=== PATIENT | female | born 1975 | race Native Hawaiian/Other Pacific Islander ===

== ENCOUNTER 2022-02-09 16:09 | Emergency (ER) | payer MEDICAID ==
[2022-02-09 16:32] LABS: BASOPHILS # (AUTO) 0.1 10^3/uL (0.0-0.1); BASOPHILS % (AUTO) 0.4 %; EOSINOPHILS # (AUTO) 0.4 10^3/uL (0.0-0.7); EOSINOPHILS % (AUTO) 2.8 %; HCT - HEMATOCRIT 40.1 % (37.0-47.0); HGB - HEMOGLOBIN 12.8 g/dL (12.0-16.0); LYMPHOCYTES % (AUTO) 26.8 %; MEAN CORPUSCULAR HEMOGLOBIN 27.4 pg (27.0-31.0); MEAN CORPUSCULAR HGB CONC 31.9 g/dL (32.0-36.0); MEAN CORPUSCULAR VOLUME 85.7 fL (81.0-99.0); MONOCYTES # (AUTO) 0.8 10^3/uL (0.0-1.0); NEUTROPHILS # (AUTO) 9.6 10^3/uL (1.5-6.6); NEUTROPHILS % (AUTO) 64.5 %; PLT - PLATELET COUNT 238 10^3/uL (130-450); RED BLOOD COUNT 4.68 10^6/uL (4.20-5.40); WHITE BLOOD COUNT 14.9 x10^3/uL (4.8-10.8)
--- NOTE | 2022-02-09 16:44 | XRAY Report ---
PROCEDURE: Chest 1 View X-Ray INDICATIONS: Chest pain TECHNIQUE: One view of the chest was acquired. COMPARISON: None FINDINGS: Surgical changes and devices: None. Lungs and pleura: No pleural effusions or pneumothorax. Lungs are clear. Mediastinum: Mediastinal contours appear normal. Heart size is normal. Bones and chest wall: No suspicious bony lesions. Overlying soft tissues appear unremarkable. IMPRESSION: Unremarkable portable chest. Reviewed by: Emiliano Nuno MD on 02/09/2022 3:43 PM JOSEFA Approved by: Emiliano Nuno MD on 02/09/2022 3:43 PM AKDT Station ID: [id number]
[2022-02-09 16:46] LABS: ALBUMIN 4.2 g/dL (3.2-5.5); ALBUMIN/GLOBULIN RATIO 0.9 (1.0-2.2); BILIRUBIN,TOTAL 0.5 mg/dL (0.2-1.0); CALCIUM 8.9 mg/dL (8.5-10.3); CREATININE 0.8 mg/dL (0.4-1.0); POTASSIUM 3.4 mmol/L (3.5-5.0)
[2022-02-09] MEDS ORDERED: MAG HYDROX/AL HYDROX/SIMETH 30 ML UDC PO STA (17:26)
[2022-02-09 17:27] VITALS: BP 136/71
--- NOTE | 2022-02-09 17:29 | ED Physician Documentation ---
History of Present Illness - Stated complaint Stated Complaint: CHEST PX - Chief complaint Chief Complaint: Cardiac - History obtained from History obtained from: Patient - History of Present Illness Timing: Today Pain level max: 2 Pain level now: 0 - Additonal information Additional information: Patient is a 46-year-old female who presents to the emergency department complaint of chest pain. She states it lasted for 1 to 2 seconds. She states it was sharp and dull in nature. Fully asymptomatic now. Resolved with belching. No fevers. No chills. No history of cardiac disease. Nothing made it better or worse. Has had similar symptoms previously, found to be due to GERD. Review of Systems Constitutional: denies: Fever, Chills Respiratory: denies: Cough GI: denies: Vomiting, Diarrhea Skin: denies: Rash Musculoskeletal: denies: Neck pain, Back pain Neurologic: denies: Headache PD PAST MEDICAL HISTORY - Past Medical History Past Medical History: Yes Psych: Anxiety - Past Surgical History Past Surgical History: No - Present Medications Home Medications: Ambulatory Orders Medication Instructions Recorded Confirmed No Known Home Medications 02/09/22 02/09/22 - Allergies Allergies/Adverse Reactions: Allergies Allergy/AdvReac Type Severity Reaction Status Date / Time amoxicillin Allergy Intermediate nausea and Verified 02/09/22 16:13 rash amoxicillin trihydrate * Allergy Intermediate nausea and Verified 02/09/22 16:13 [From Augmentin] rash cephalexin monohydrate * Allergy Intermediate rash and Verified 02/09/22 16:13 [From Keflex] nausea potassium clavulanate * Allergy Intermediate nausea and Verified 02/09/22 16:13 [From Augmentin] rash - Social History Does the pt smoke?: No Smoking Status: Never smoker Does the pt drink ETOH?: No Does the pt have substance abuse?: No - Immunizations Immunizations are current?: Yes PD ED PE NORMAL - Vitals Vital signs reviewed: Yes - General General: Alert and oriented X 3, No acute distress, Well developed/nourished - HEENT HEENT: PERRL, Moist mucous membranes - Neck Neck: Supple, no meningeal sign - Cardiac Cardiac: RRR, Strong equal pulses - Respiratory Respiratory: No respiratory distress, Clear bilaterally - Abdomen Abdomen: Soft, Non tender, Non distended - Derm Derm: Warm and dry - Extremities Extremities: No edema, No calf tenderness / cord - Neuro Neuro: Alert and oriented X 3 - Psych Psych: Normal mood, Normal affect Results - Vitals Vitals: Vital Signs - 24 hr 02/09/22 02/09/22 02/09/22 16:14 16:22 17:26 Temperature 36.9 C Heart Rate 92 92 87 Respiratory 18 18 16 Rate Blood Pressure 148/68 H 148/68 H 136/71 H O2 Saturation 100 100 100 Oxygen O2 Source Room air - EKG (time done) 1616 Rate: Rate (enter#) (99) Rhythm: NSR [place]: Normal Intervals: Normal [place] QRS: Normal Ischemia: Normal ST segments, Q waves (II, III, aVF) - Labs Labs: Laboratory Tests 02/09/22 02/09/22 02/09/22 16:27 16:27 16:27 WBC 14.9 H RBC 4.68 Hgb 12.8 Hct 40.1 MCV 85.7 MCH 27.4 MCHC 31.9 L RDW 14.0 Plt Count 238 MPV 11.0 H Neut # (Auto) 9.6 H Lymph # (Auto) 4.0 H Hodgeman # (Auto) 0.8 Eos # (Auto) 0.4 Baso # (Auto) 0.1 Absolute Nucleated RBC 0.00 Nucleated RBC % 0.0 Sodium 137 Potassium 3.4 L Chloride 100 L Carbon Dioxide 25 Anion Gap 12.0 BUN 13 Creatinine 0.8 Estimated GFR (MDRD) 77 L Glucose 152 H Calcium 8.9 Total Bilirubin 0.5 AST 18 ALT 16 Alkaline Phosphatase 64 Troponin I High Sens 3.2 Total Protein 9.0 H Albumin 4.2 Globulin 4.8 H Albumin/Globulin Ratio 0.9 L Lipase 60 H - Rads (name of study) Chest x-ray Radiology: Final report received, EMP read contemporaneously, See rad report (No acute abnormality) PD MEDICAL DECISION MAKING - ED course Complexity details: reviewed results, re-evaluated patient, considered differential (No ST elevation FL, no aortic dissection, no PE, no tension pneumothorax, no aortic aneurysm), d/w patient ED course: 46-year-old female with 1 to 2 seconds of chest pain today. No acute findings on EKG, laboratory testing. High sensitive troponin is negative. Offered repeat High-sensitivity troponin, but patient does not wish to stay for this. Given Maalox. We will have her follow-up with her doctor for further care. Patient is well-appearing, nontoxic. Afebrile. Symptoms not consistent with acute coronary syndrome. Patient counseled regarding signs and symptoms for which I believe and urgent re-evaluation would be necessary. Patient with good understanding of and agreement to plan and is comfortable going home at this time This document was made in part using voice recognition software. While efforts are made to proofread this document, sound alike and grammatical errors may occur. Departure - Departure Disposition: 01 Home, Self Care Clinical Impression: Atypical chest pain Condition: Good Instructions: ED Chest Pain Atypical Unkn Cause Follow-Up: your,doctor in 1 week [Other] Comments: Please follow-up with your doctor for further care. Return if you worsen. You can discuss anxiety medication with your doctor as well as medication for any sort of reflux. Your testing today does not show any acute abnormalities other than a mildly elevated white blood cell count. Your doctor can also check a hemoglobin A1c for potential diabetes. Discharge Date/Time: 02/09/22 17:35
== END 2022-02-09 17:35 | disposition home or self-care (01) ==
LOC: ED 16:09
DX: R07.89 Other chest pain (principal)
CPT/HCPCS: 36415; 71045; 80053; 83690; 84484; 85025; 93005; 99283; 99284; A9270

== ENCOUNTER 2022-02-18 23:02 | Emergency (ER) | payer MEDICAID ==
[2022-02-18 23:17] VITALS: BP 163/74
--- OUTSIDE RECORDS SUMMARY | 2022-02-18 23:48 | EXTERNAL MEDICAL SUMMARY RPT | Continuity of Care Document ---
:1975 Author Organization [place] Address [address] [place] [address] Phone Care Team Providers Name Role Phone Aisha Shoemaker Unavailable Unavailable Allergies No information. Encounters No information. Medications No information. Problems Procedures date description facility 20220211 [facility] Results No information. Vital Signs date measurement value source 20220211 weight_standard 240 lb 20220211 weight_metric 108.86 kg 20220211 temperature_standard 98.1 F 20220211 temperature_metric 36.72 C 20220211 respiration_rate 14 /min 20220211 heart_rate 44 /min 20220211 BP_systolic 130 mm[Hg] 20220211 BP_diastolic 88 mm[Hg]
--- NOTE | 2022-02-19 00:50 | ED Physician Documentation ---
History of Present Illness - Stated complaint Stated Complaint: CHILLS/FEEL WEIRD - Chief complaint Chief Complaint: General - History obtained from History obtained from: Patient - History of Present Illness Timing: Enter time (16:00), Today Pain level max: 0 Pain level now: 0 - Additonal information Additional information: patient recently started taking omeprazole, once per day for 2-3 days after todays dose at about 4PM, she developed chills and felt weird. She cannot elaborate on what she means when she says she feels weird except mild generalized headache. Review of Systems Constitutional: reports: Chills. denies: Fever, Myalgias, Fatigue, Sweats Cardiac: reports: Reviewed and negative Respiratory: reports: Reviewed and negative GI: reports: Reviewed and negative Neurologic: reports: Headache (mild generalized). denies: Generalized weakness, Focal weakness, Numbness PD PAST MEDICAL HISTORY - Past Medical History GI: GERD Psych: Anxiety - Past Surgical History Past Surgical History: No - Present Medications Home Medications: Ambulatory Orders Medication Instructions Recorded Confirmed Omeprazole 02/18/22 - Allergies Allergies/Adverse Reactions: Allergies Allergy/AdvReac Type Severity Reaction Status Date / Time amoxicillin Allergy Intermediate nausea and Verified 02/18/22 23:18 rash amoxicillin trihydrate * Allergy Intermediate nausea and Verified 02/18/22 23:18 [From Augmentin] rash cephalexin monohydrate * Allergy Intermediate rash and Verified 02/18/22 23:18 [From Keflex] nausea potassium clavulanate * Allergy Intermediate nausea and Verified 02/18/22 23:18 [From Augmentin] rash - Social History Does the pt smoke?: No Smoking Status: Never smoker Does the pt drink ETOH?: No Does the pt have substance abuse?: No - Immunizations Immunizations are current?: Yes PD ED PE NORMAL - Vitals Vital signs reviewed: Yes - General General: Alert and oriented X 3, No acute distress, Well developed/nourished - Cardiac Cardiac: RRR, No murmur - Respiratory Respiratory: No respiratory distress, Clear bilaterally - Neuro Neuro: Alert and oriented X 3, Normal speech Results - Vitals Vitals: Oxygen O2 Source Room air PD MEDICAL DECISION MAKING - ED course Complexity details: considered differential, d/w patient ED course: Patient is in NAD, vague c/o chills and feeling weird after taking omeprazole. This was not her first dose, although she started taking this medication only 2- 3 days ago. Hard to gauge if this is side effect of the medication, given lack of specific symptoms beyond chills and mild headache. I advised her to stop taking the medication, as there are alternative medications for GERD she can try instead, such as Pepcid. If her symptoms recur, the variable of the omperazole will have been eliminated. Departure - Departure Disposition: 01 Home, Self Care Clinical Impression: Chills Condition: Good Instructions: ED Drug React Adverse Other Comments: As we discussed, it is possible that your symptoms are due to the prilosec. I recommend discontinuing this medication to eliminate it as a variable. You can try pepcid instead , which is a different acid blaze in a different class of medications (and thus unlikely to cause same side effects). Forms: Activity restrictions Discharge Date/Time: 02/19/22 01:24
== END 2022-02-19 01:24 | disposition home or self-care (01) ==
LOC: ED 23:02
DX: R68.83 Chills (without fever) (principal)
CPT/HCPCS: 99281; 99282

== ENCOUNTER 2022-02-25 20:46 | Emergency (ER) | payer MEDICAID ==
--- OUTSIDE RECORDS SUMMARY | 2022-02-25 21:02 | EXTERNAL MEDICAL SUMMARY RPT | Continuity of Care Document ---
:1975 Author Organization [facility] Address [address] [place] [address] Phone Care Team Providers Name Role Phone Bachle Unavailable Unavailable Miscellaneous Unavailable Unavailable Allergies No information. Encounters No information. Medications date description facility 20220211 Mupirocin 0.02 MG/MG Topical Ointment [facility] Problems Procedures date description facility 20220219 [facility] 20220211 [facility] 20220211 [facility] Results No information. Vital Signs date measurement value source 20220211 weight_standard 240 lb 20220211 weight_metric 108.86 kg 20220211 temperature_standard 98.1 F 20220211 temperature_metric 36.72 C 20220211 respiration_rate 14 /min 20220211 heart_rate 44 /min 20220211 BP_systolic 130 mm[Hg] 20220211 BP_diastolic 88 mm[Hg] 20220211 temperature_standard 98.1 F 20220211 temperature_metric 36.72 C 20220211 respiration_rate 14 /min 20220219 weight_standard 107.95 lb 20220219 weight_metric 48.97 kg 20220219 heart_rate 80 /min 20220219 BP_systolic 140 mm[Hg] 20220219 BP_diastolic 90 mm[Hg]
--- NOTE | 2022-02-25 21:33 | ED Physician Documentation ---
History of Present Illness - Stated complaint Stated Complaint: NUMBNESS, DRY MOUTH - Chief complaint Chief Complaint: General - History obtained from History obtained from: Patient - Additonal information Additional information: Patient is a 46-year-old female presenting for evaluation of dry mouth since yesterday as well as all over body numbness that she felt for a few minutes prior to arrival. Patient is recently felt postnasal drainage for the last week and saw a physician at a walk-in clinic yesterday. She was told she might have a sinus infection and recommended to use Mucinex and Flonase. Also had fullness in her ears and had earwax removed bilaterally. She took Mucinex today and felt that made her dry mouth worse. She also reported feeling all over body numbness prior to coming into the emergency department which has since resolved.Patient denies headache, fever, nasal drainage, cough, difficulty breathing, chest pain, abdominal pain, focal weakness. Review of Systems Constitutional: denies: Fever Nose: reports: Other (Postnasal drip) Throat: denies: Sore throat Cardiac: denies: Chest pain / pressure, Palpitations Respiratory: denies: Dyspnea, Cough GI: denies: Abdominal Pain : denies: Dysuria Skin: denies: Rash Musculoskeletal: denies: Back pain Neurologic: denies: Headache PD PAST MEDICAL HISTORY - Past Medical History Past Medical History: Yes Cardiovascular: None Respiratory: None Neuro: None Endocrine/Autoimmune: None GI: GERD COMPLIANCE REPRESENTATIVE: None : None HEENT: None Psych: Anxiety Musculoskeletal: None Derm: None - Past Surgical History Past Surgical History: No - Present Medications Home Medications: Ambulatory Orders Medication Instructions Recorded Confirmed Omeprazole 02/18/22 Guaifenesin/Pseudoephedrne HCl 1 tab PO DAILY 02/25/22 02/25/22 [Mucinex D ER 1,200-120 mg Tab] - Allergies Allergies/Adverse Reactions: Allergies Allergy/AdvReac Type Severity Reaction Status Date / Time amoxicillin Allergy Intermediate nausea and Verified 02/25/22 20:59 rash amoxicillin trihydrate * Allergy Intermediate nausea and Verified 02/25/22 20:59 [From Augmentin] rash cephalexin monohydrate * Allergy Intermediate rash and Verified 02/25/22 20:59 [From Keflex] nausea potassium clavulanate * Allergy Intermediate nausea and Verified 02/25/22 20:59 [From Augmentin] rash - Social History Does the pt smoke?: No Smoking Status: Never smoker Does the pt drink ETOH?: No Does the pt have substance abuse?: No - Immunizations Immunizations are current?: Yes - POLST Patient has POLST: No PD ED PE NORMAL - General General: Alert and oriented X 3, No acute distress, Well developed/nourished - HEENT HEENT: Atraumatic, Ears normal, Moist mucous membranes, Pharynx benign, Other (No tenderness over frontal or maxillary sinuses, no fullness, no erythema) - Neck Neck: Supple, no meningeal sign - Cardiac Cardiac: RRR, No murmur, Strong equal pulses - Respiratory Respiratory: No respiratory distress, Clear bilaterally - Abdomen Abdomen: Normal bowel sounds, Soft, Non tender, Non distended - Extremities Extremities: No edema - Neuro Neuro: Alert and oriented X 3, oil tank car cleaner 2-12 intact, No motor deficit, No sensory deficit, Normal speech - Psych Psych: Normal mood, Normal affect Results - Vitals Vitals: Vital Signs - 24 hr 02/25/22 02/25/22 20:56 21:44 Temperature 36.0 C L 36.9 C Heart Rate 79 69 Respiratory 17 15 Rate Blood Pressure 159/92 H 132/87 H O2 Saturation 99 100 Oxygen O2 Source Room air PD MEDICAL DECISION MAKING - ED course ED course: Patient with postnasal drainage and dry mouth. On exam, has no sinus tenderness, no fever or signs of bacterial infection. She did report having an episode of all over body numbness which has since resolved. Do not think this suggestive of a stroke or TIA as it appeared generalized and not focal in nature. Patient additionally did not have any other symptoms associated with it.Patient does have a number of questionsSuch as with her having had an epidural 4 years ago can still cause back pain,With her the dry mouth could be a sign of diabetes. Patient had labs done last month and I did review these with her again and told her that her glucose at that time did not suggest diabetes. I did recommend that she establish care with a primary care physician given her number of concernsFor chronic conditions. In regards to her postnasal drainage, recommend saline rinse.Patient felt reassured and is comfortable with plans for discharge. She is aware of return precautions. Departure - Departure Disposition: 01 Home, Self Care Clinical Impression: Mouth dryness, Post-nasal drainage Condition: Stable Instructions: ED Sinusitis No Abx Follow-Up: Celine Caal MD [Provider Admit Priv/Credential] - Comments: Risa - You were Evaluated for feelings of postnasal drainage and dry mouth.Postnasal drainage can be caused by an infection which is likely a viral infection. Antibiotics will not help with this. There are medication she can use for postnasal drainage but they may also cause side effects like dry mouth because they will dry out your mucous membranes. Please continue to hydrate yourself with small amounts of water frequently through the day.If you are not having severe symptoms then avoid medications like antihistaminesWhich may make you feel more dry.You can use saline nasal spray To help with any congestion and to loosen any mucus. Please also follow-up with your primary care doctor. As you do not have 1 I have included information for a provider that may be excepting patients. Return to the emergency department with any concerning symptoms such as chest pain, difficulty breathing, severe headache, weakness to 1 side of the body Or any concerns you may have. Discharge Date/Time: 02/25/22 21:45
[2022-02-25 21:49] VITALS: BP 132/87
== END 2022-02-25 21:45 | disposition home or self-care (01) ==
LOC: ED 20:46
DX: R09.82 Postnasal drip (principal); R68.2 Dry mouth, unspecified
CPT/HCPCS: 99281; 99282

== ENCOUNTER 2022-02-28 16:12 | Emergency (ER) | payer MEDICAID ==
--- OUTSIDE RECORDS SUMMARY | 2022-02-28 16:24 | EXTERNAL MEDICAL SUMMARY RPT | Continuity of Care Document ---
:1975 Author Organization [place] Address [address] [place] [address] Phone Care Team Providers Name Role Phone Miscellaneous Unavailable Unavailable Bachle Unavailable Unavailable Allergies No information. Encounters No information. Medications date description facility 20220211 Mupirocin 0.02 MG/MG Topical Ointment [facility] Problems Procedures date description facility 20220219 [facility] 20220211 [facility] 20220211 [facility] Results No information. Vital Signs date measurement [...]
--- NOTE | 2022-02-28 16:41 | ED Physician Documentation ---
PD HPI FOCAL NEURO - Stated complaint Stated Complaint: FACIAL NUMBNESS - Chief complaint Chief Complaint: Neuro - History obtained from History obtained from: Patient - Additional information Additional information: 46-year-old woman presents for the evaluation of incomplete right sided facial numbness going on for the last weeks or so. She is feeling a lot of anxiety with it. She also notices migratory numbness throughout her body which she also thinks is related to anxiety. There is a frontal headache for the last 2 weeks associated with that that she has been treated for sinusitis with antibiotics 4. Recently diagnosed with prediabetes by her primary care physician. No chance of . Review of Systems Constitutional: denies: Fever, Chills Ears: denies: Loss of hearing, Ear pain Nose: reports: Rhinorrhea / runny nose, Congestion Throat: denies: Sore throat Cardiac: denies: Chest pain / pressure, Palpitations Respiratory: denies: Dyspnea PD PAST MEDICAL HISTORY - Past Medical History Cardiovascular: None Respiratory: None Neuro: None Endocrine/Autoimmune: None GI: GERD MANAGER DATA: None : None HEENT: None Psych: Anxiety Musculoskeletal: None Derm: None - Past Surgical History Past Surgical History: No - Present Medications Home Medications: Ambulatory Orders Medication Instructions Recorded Confirmed Omeprazole 02/18/22 Guaifenesin/Pseudoephedrne HCl 1 tab PO DAILY 02/25/22 02/25/22 [Mucinex D ER 1,200-120 mg Tab] Azithromycin 250 mg PO 02/28/22 buPROPion [Wellbutrin Sr] 100 mg PO BID #60 tablet 02/28/22 diazePAM [Valium] 5 - 10 mg PO TID PRN #15 tablet 02/28/22 - Allergies Allergies/Adverse Reactions: Allergies Allergy/AdvReac Type Severity Reaction Status Date / Time amoxicillin Allergy Intermediate nausea and Verified 02/25/22 20:59 rash amoxicillin trihydrate * Allergy Intermediate nausea and Verified 02/25/22 20:59 [From Augmentin] rash cephalexin monohydrate * Allergy Intermediate rash and Verified 02/25/22 20:59 [From Keflex] nausea potassium clavulanate * Allergy Intermediate nausea and Verified 02/25/22 20:59 [From Augmentin] rash - Social History Does the pt smoke?: No Smoking Status: Never smoker Does the pt drink ETOH?: No Does the pt have substance abuse?: No - Immunizations Immunizations are current?: Yes - POLST Patient has POLST: No PD ED PE NORMAL - Vitals Vital signs reviewed: Yes - General General: Alert and oriented X 3, No acute distress - HEENT HEENT: PERRL, EOMI, Ears normal, Moist mucous membranes, Pharynx benign - Neck Neck: Supple, no meningeal sign, No bony TTP - Cardiac Cardiac: RRR, No murmur - Respiratory Respiratory: No respiratory distress, Clear bilaterally - Abdomen Abdomen: Non tender - Back Back: No CVA TTP, No spinal TTP - Derm Derm: Normal color, Warm and dry, No rash - Extremities Extremities: No edema, No calf tenderness / cord - Neuro Neuro: Alert and oriented X 3, Normal speech - Psych Psych: Normal mood, Normal affect NIHSS - Time Time: 16:35 - Level of Consciousness Level of consciousness: (0) Alert, Keenly responsive LOC Questions: (0) Answers both Q's correct LOC Commands: (0) Performs both correctly - Gaze Best Gaze: (0) Normal - Visual Visual: (0) No loss - Facial Palsy Facial Palsy: (0) Normal, symmetrical movement - Motor Arms (both separate) Motor Arm (right): (0) No drift Motor Arm (left): (0) No drift - Motor Legs (both separate) Motor Leg (right): (0) No drift Motor Leg (left): (0) No drift - Limb Ataxia Limb Ataxia: (0) Absent - Sensory Sensory: (0) Normal (Symmetric sensation throughout the face and upper extremities and lower extremities.) - Best Language Best Language: (0) No aphasia - Dysarthria Dysarthria: (0) Normal - Extinction and Inattention (formally neg Extinction and inattention: (0) No abnormality - Total Score/Results Total Score/Result: 0 Results - Vitals Vitals: Vital Signs - 24 hr 02/28/22 02/28/22 16:26 16:28 Temperature 36.5 C 36.5 C Heart Rate 77 80 Respiratory 18 Rate Blood Pressure 153/79 H O2 Saturation 100 100 Oxygen O2 Source Room air - Labs Labs: Laboratory Tests 02/28/22 17:25 POC Whole Bld Glucose 130 H PD MEDICAL DECISION MAKING - ED course ED course: 46-year-old woman presents for evaluation of facial numbness but without any physical exam findings. She fully admits this may be related to anxiety. A CT of the head was done without pertinent positive findings and her blood sugar was 130 which should not cause symptoms. She was relieved. She would like to start some treatment for anxiety. Departure - Departure Disposition: 01 Home, Self Care Clinical Impression: Paresthesias Condition: Good Record reviewed to determine appropriate education?: Yes Instructions: ED Stress React Prescriptions: diazePAM [Valium] 5 - 10 mg PO TID PRN #15 tablet PRN Reason: Spasms buPROPion [Wellbutrin Sr] 100 mg PO BID #60 tablet Comments: I sent your prescription electronically to [facility] in [place]. CAT scan of your head is normal, no masses or evidence of stroke. Also your exam is normal to and this is reassuring. Return for new or worsening symptoms. Follow-up with your primary care physician, next available appointment.
--- NOTE | 2022-02-28 17:15 | CT Report ---
PROCEDURE: HEAD WO INDICATIONS: Right face numb TECHNIQUE: Noncontrast 4.5 mm thick angled axial sections acquired from the foramen magnum to the vertex. For r adiation dose reduction, the following was used: automated exposure control, adjustment of mA and/or kV according to patient size. COMPARISON: None. FINDINGS: Image quality: Excellent. CSF spaces: Basal cisterns are patent. No extra-axial fluid collections. Ventricles are normal in size and shape. Brain: No midline shift. No intracranial masses or hemorrhage. Gastelum-white matter interface is norm al. Skull and face: Calvarium and visualized facial bones are intact, without suspicious lesions. Sinuses: Visualized sinuses and mastoids are clear. IMPRESSION: No acute intracranial disease process. Reviewed by: Lisette Del Real MD, PhD on 02/28/2022 5:13 PM PDT Approved by: Lisette Del Real MD, PhD on 02/28/2022 5:13 PM PDT Station ID: [id number]
[2022-02-28 17:41] VITALS: BP 138/97
== END 2022-02-28 17:41 | disposition home or self-care (01) ==
LOC: ED 16:12
DX: R20.2 Paresthesia of skin (principal)
CPT/HCPCS: 99282; 99284

== ENCOUNTER 2022-03-04 09:01 | Emergency (ER) | payer MEDICAID ==
--- NOTE | 2022-03-04 09:22 | ED Physician Documentation ---
PD HPI CHEST PAIN - Stated complaint Stated Complaint: CHEST PX - Chief complaint Chief Complaint: Cardiac - History obtained from History obtained from: Patient - History of Present Illness Timing - onset: How many hours ago (2), Today Timing - onset during: Rest, Light activity (was just standing in kitchen preparing breakfast when had brief sharp left pectoral pain for few seconds. Occurred again 20-30 minutes later. No dyspnea, lightheadedness, nor URI symptoms with it.) Timing - duration: Seconds Timing - details: Abrupt onset, Now resolved Quality: Aching, Sharp Location: Left chest Radiation: No: Jaw, Neck, Back Improved by: Other (brief pain that went away on its own.) Worsened by: No: Inspiration, Movement, Palpation Associated symptoms: No: Shortness of air, Nausea (some belching mildly), Vomiting, Feeling faint / dizzy Similar symptoms before: No diagnosis (has had chest pain episodes as well as other varied symptoms of face numbness briefly, some numbness in arm/legs at times. Each has lasted minutes to hours. No consistent symptoms for days per se.) Review of Systems Constitutional: denies: Fever, Chills Eyes: denies: Decreased vision, Photophobia Ears: reports: Ear pain ( pressure feeling left ear, with some intermittent positional vertigo with head movement.). 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 : None HEENT: None Psych: Anxiety Musculoskeletal: None Derm: None - Past Surgical History Past Surgical History: No - Present Medications Home Medications: Ambulatory Orders Medication Instructions Recorded Confirmed buPROPion [Wellbutrin Sr] 100 mg PO BID #60 tablet 02/28/22 03/04/22 Cetirizine [ZyrTEC] 10 mg PO DAILY #15 tablet 03/04/22 Meclizine HCl [Motion Sickness] 25 mg PO Q8H PRN #20 tablet 03/04/22 - Allergies Allergies/Adverse Reactions: Allergies Allergy/AdvReac Type Severity Reaction Status Date / Time amoxicillin Allergy Intermediate nausea and Verified 03/04/22 09:04 rash amoxicillin trihydrate * Allergy Intermediate nausea and Verified 03/04/22 09:04 [From Augmentin] rash cephalexin monohydrate * Allergy Intermediate rash and Verified 03/04/22 09:04 [From Keflex] nausea potassium clavulanate * Allergy Intermediate nausea and Verified 03/04/22 09:04 [From Augmentin] rash - Social History Does the pt smoke?: No Smoking Status: Never smoker Does the pt drink ETOH?: No Does the pt have substance abuse?: No - Immunizations Immunizations are current?: Yes - POLST Patient has POLST: No PD ED PE NORMAL - Vitals Vital signs reviewed: Yes - General General: Alert and oriented X 3, No acute distress, Well developed/nourished - HEENT HEENT: PERRL, EOMI (no nystagmus noted right now. ), Pharynx benign. No: Ears normal (right is normal; left TM with bulging and fluid behind but no redness/drainage. Canal is patent. ) - Neck Neck: Supple, no meningeal sign, No adenopathy - Cardiac Cardiac: RRR, No murmur - Respiratory Respiratory: Clear bilaterally, Other (no chestwall tenderness) - Abdomen Abdomen: Soft, Non tender - Derm Derm: Normal color, Warm and dry - Extremities Extremities: Normal ROM s pain, No edema, No calf tenderness / cord - Neuro Neuro: Alert and oriented X 3, No motor deficit, Normal speech Results - Vitals Vitals: Vital Signs - 24 hr 03/04/22 03/04/22 09:04 11:06 Temperature 36.9 C 36.2 C L Heart Rate 74 68 Respiratory 18 13 Rate Blood Pressure 176/98 H 119/71 O2 Saturation 100 100 Oxygen O2 Source Room air - EKG (time done) 09:12 Rate: Rate (enter#) (68) Rhythm: NSR [place]: Normal Intervals: Normal [place] QRS: Normal Ischemia: Normal ST segments, Q waves (III), Other (t wave inversion III). No: ST elevation c/w ischemia, ST depression Compare to prior EKG: Unchanged from prior EKG (02/09/22) - Labs Labs: Laboratory Tests 03/04/22 03/04/22 03/04/22 10:11 10:11 10:11 WBC 8.7 RBC 4.57 Hgb 12.8 Hct 39.4 MCV 86.2 MCH 28.0 MCHC 32.5 RDW 14.2 Plt Count 238 MPV 11.0 H Neut # (Auto) 6.3 Lymph # (Auto) 1.9 [place] # (Auto) 0.4 Eos # (Auto) 0.1 Baso # (Auto) 0.1 Absolute Nucleated RBC 0.00 Nucleated RBC % 0.0 Sodium 137 Potassium 3.6 Chloride 101 Carbon Dioxide 26 Anion Gap 10.0 BUN 8 Creatinine 0.7 Estimated GFR (MDRD) 90 Glucose 123 H Calcium 8.9 Total Bilirubin 0.8 AST 18 ALT 18 Alkaline Phosphatase 54 Troponin I High Sens 3.0 Total Protein 8.7 H Albumin 4.2 Globulin 4.5 H Albumin/Globulin Ratio 0.9 L Lipase 47 - Rads (name of study) chest xray Radiology: Prelim report reviewed (no acute cardiopulmonary abnormality.), See rad report PD MEDICAL DECISION MAKING - ED course Complexity details: reviewed results (ECG, CXR, labs normal. Has not been on Wellbutrin long enough for positive effects yet. ), re-evaluated patient (she is still feeling okay. BP somewhat elevated but improves without direct treatment. Patient is anxious about varied symptoms of face numbness, chest pain, arm numbness at times. Concern about MS. I refer her to her PCP to decide if outpt brain MRI or not. Symptoms may be anxiety; continue Wellbut), considered differential (PERC negative. brief sharp pain. no dyspnea. HR normal on monitor. ECG and CXR normal. Neg troponin. Not really improved with mylanta PO. ), d/w patient Departure - Departure Disposition: 01 Home, Self Care Clinical Impression: Vertigo Chest pain Qualifiers: Chest pain type: precordial pain Qualified Code(s): R07.2 - Precordial pain Serous otitis media Qualifiers: Chronicity: acute Laterality: left Recurrence: non-recurrent Qualified Code(s): H65.02 - Acute serous otitis media, left ear Condition: Stable Record reviewed to determine appropriate education?: Yes Instructions: ED Chest Pain Atypical Unkn Cause Follow-Up: Taylor Michaels PA [Primary Care Provider] - Prescriptions: Meclizine HCl [Motion Sickness] 25 mg PO Q8H PRN #20 tablet PRN Reason: Vertigo Cetirizine [ZyrTEC] 10 mg PO DAILY #15 tablet Comments: Your EKG is without any signs of acute injury and is appearing the same as your EKG from a month ago. Your chest x-ray is also clear. Blood test do not show any signs of heart muscle injury/heart attack. You do have some fluid behind the left eardrum but it does not look infected per se. I would treat this with some cetirizine antihistamine daily for the next 1 to 2 weeks. This would be contributing to the dizziness and some ringing in your ear. You can add meclizine every 8 hours if needed for vertigo/dizziness. Unclear the cause of the pain in your chest. No signs of more serious cause at this time. Follow-up with your primary care regarding ongoing evaluation and treatment. I would continue with the recent prescription of the Wellbutrin as you have not really been on it long enough to have felt any improvement as yet with regard to anxiety etc. Discussed with your primary care if any further testing or evaluation of the numbness episodes. Consideration could be a brain MRI but would need to be arranged outpatient. I transmitted your prescriptions to [facility] pharmacy. Discharge Date/Time: 03/04/22 11:14
--- OUTSIDE RECORDS SUMMARY | 2022-03-04 09:30 | EXTERNAL MEDICAL SUMMARY RPT | Continuity of Care Document ---
:1975 Author Organization [facility] Address [address] [place] [address] Phone Care Team Providers Name Role Phone Bachle Unavailable Unavailable Miscellaneous Unavailable Unavailable Allergies No information. Encounters No information. Medications date description facility [id number] Mupirocin 0.02 MG/MG Topical Ointment [facility] Problems Procedures date description facility [id number] [facility] [id number] [facility] [id number] [facility] Results No information. Vital Signs date [...]
[2022-03-04] MEDS ORDERED: MECLIZINE 12.5 MG TABLET PO STA (09:54)
[2022-03-04] MEDS ORDERED: CETIRIZINE 10 MG TABLET PO STA (09:54)
[2022-03-04] MEDS ORDERED: MAG HYDROX/AL HYDROX/SIMETH 30 ML UDC PO STA (09:55)
--- NOTE | 2022-03-04 10:10 | XRAY Report ---
PROCEDURE: Chest 1 View X-Ray INDICATIONS: Chest Pain this morning TECHNIQUE: One view of the chest was acquired. COMPARISON: February 09, 2022 FINDINGS: SUPPORT DEVICES: None. LUNGS/PLEURA: Reduced lung lungs. No focal consolidation, pleural effusion or space-occupying pneumot horax. MEDIASTINUM: The cardiomediastinal silhouette is within normal limits. BONES/SOFT TISSUES: No acute abnormality. IMPRESSION: 1.No acute cardiopulmonary abnormality. Reviewed by: Mariano Pfeiffer MD on 03/04/2022 10:09 AM PDT Approved by: Mariano Pfeiffer MD on 03/04/2022 10:09 AM PDT Station ID: [id number]
[2022-03-04 10:16] LABS: BASOPHILS # (AUTO) 0.1 10^3/uL (0.0-0.1); BASOPHILS % (AUTO) 0.6 %; EOSINOPHILS # (AUTO) 0.1 10^3/uL (0.0-0.7); EOSINOPHILS % (AUTO) 1.1 %; HCT - HEMATOCRIT 39.4 % (37.0-47.0); HGB - HEMOGLOBIN 12.8 g/dL (12.0-16.0); LYMPHOCYTES # (AUTO) 1.9 10^3/uL (1.5-3.5); LYMPHOCYTES % (AUTO) 21.5 %; MEAN CORPUSCULAR HGB CONC 32.5 g/dL (32.0-36.0); MEAN CORPUSCULAR VOLUME 86.2 fL (81.0-99.0); MONOCYTES # (AUTO) 0.4 10^3/uL (0.0-1.0); MONOCYTES % (AUTO) 4.1 %; NEUTROPHILS # (AUTO) 6.3 10^3/uL (1.5-6.6); NEUTROPHILS % (AUTO) 72.2 %; PLT - PLATELET COUNT 238 10^3/uL (130-450); RED BLOOD COUNT 4.57 10^6/uL (4.20-5.40); RED CELL DISTRIBUTION WIDTH 14.2 % (12.0-15.0); WHITE BLOOD COUNT 8.7 x10^3/uL (4.8-10.8)
[2022-03-04 10:27] LABS: ALBUMIN 4.2 g/dL (3.2-5.5); ALBUMIN/GLOBULIN RATIO 0.9 (1.0-2.2); BILIRUBIN,TOTAL 0.8 mg/dL (0.2-1.0); CALCIUM 8.9 mg/dL (8.5-10.3); CREATININE 0.7 mg/dL (0.4-1.0); POTASSIUM 3.6 mmol/L (3.5-5.0); TOTAL PROTEIN 8.7 g/dL (6.7-8.2)
[2022-03-04 11:08] VITALS: BP 119/71
== END 2022-03-04 11:14 | disposition home or self-care (01) ==
LOC: ED 09:01
DX: H65.02 Acute serous otitis media, left ear (principal); R42 Dizziness and giddiness; R07.2 Precordial pain
CPT/HCPCS: 36415; 71045; 80053; 83690; 84484; 85025; 93005; 99282; 99284; A9270

== ENCOUNTER 2022-03-23 20:28 | Emergency (ER) | payer MEDICAID ==
[2022-03-23 20:35] VITALS: BP 180/86
--- NOTE | 2022-03-23 20:51 | ED Physician Documentation ---
History of Present Illness - Stated complaint Stated Complaint: EAR PX,DIZZY,ANXIETY - Chief complaint Chief Complaint: General - Additonal information Additional information: 46-year-old female presents emergency department for evaluation of feeling dizzy, having congestion and muffled hearing mostly in her right ear. She is also reporting some chest pain and pressure. She does state that she is recently been very anxious. This is her third ER visit this month. Patient states that she followed up with her primary care provider and was told that she had a murmur and was advised to get an outpatient echo. Review of Systems Constitutional: denies: Fever, Chills Eyes: reports: Reviewed and negative Ears: reports: Loss of hearing Nose: reports: Congestion Throat: reports: Reviewed and negative Cardiac: reports: Chest pain / pressure Respiratory: denies: Dyspnea, Cough GI: reports: Reviewed and negative : reports: Reviewed and negative Skin: reports: Reviewed and negative Musculoskeletal: reports: Reviewed and negative Neurologic: reports: Reviewed and negative Psychiatric: reports: Reviewed and negative PD PAST MEDICAL HISTORY - Past Medical History Cardiovascular: None Respiratory: None Neuro: None Endocrine/Autoimmune: None GI: GERD 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 : None HEENT: None Psych: Anxiety Musculoskeletal: None Derm: None - Past Surgical History Past Surgical History: No - Present Medications Home Medications: Ambulatory Orders Medication Instructions Recorded Confirmed buPROPion [Wellbutrin Sr] 100 mg PO BID #60 tablet 02/28/22 03/04/22 Cetirizine [ZyrTEC] 10 mg PO DAILY #15 tablet 03/04/22 Meclizine HCl [Motion Sickness] 25 mg PO Q8H PRN #20 tablet 03/04/22 Cetirizine HCl [Zyrtec] 10 mg PO DAILY #30 tablet 03/23/22 - Allergies Allergies/Adverse Reactions: Allergies Allergy/AdvReac Type Severity Reaction Status Date / Time amoxicillin Allergy Intermediate nausea and Verified 03/23/22 20:31 rash amoxicillin trihydrate * Allergy Intermediate nausea and Verified 03/23/22 20:31 [From Augmentin] rash cephalexin monohydrate * Allergy Intermediate rash and Verified 03/23/22 20:31 [From Keflex] nausea potassium clavulanate * Allergy Intermediate nausea and Verified 03/23/22 20:31 [From Augmentin] rash - Social History Does the pt smoke?: No Smoking Status: Never smoker Does the pt drink ETOH?: No Does the pt have substance abuse?: No - Immunizations Immunizations are current?: Yes - POLST Patient has POLST: No PD ED PE NORMAL - General General: Alert and oriented X 3, No acute distress, Well developed/nourished - HEENT HEENT: Atraumatic, EOMI, Moist mucous membranes. No: Ears normal (Effusion of the right ear without tenderness. 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, No motor deficit Eye Opening: Spontaneous Motor: Obeys Commands Verbal: Oriented GCS Score: 15 - Psych Psych: Normal mood Results - Vitals Vitals: Vital Signs - 24 hr 03/23/22 20:31 Temperature 36.5 C Heart Rate 75 Respiratory 16 Rate Blood Pressure 180/86 H O2 Saturation 99 Oxygen O2 Source Room air - EKG (time done) 2045 Rate: Rate (enter#) (66) Rhythm: NSR [place]: Normal Intervals: Normal [place] QRS: Normal Ischemia: Q waves Compare to prior EKG: Unchanged from prior EKG Computer interpretation: Agree with computer - Labs Labs: Laboratory Tests 03/23/22 03/23/22 03/23/22 20:53 20:53 20:53 WBC 12.3 H RBC 4.49 Hgb 12.5 Hct 39.1 MCV 87.1 MCH 27.8 MCHC 32.0 RDW 13.8 Plt Count 249 MPV 11.2 H Neut # (Auto) 7.9 H Lymph # (Auto) 3.5 [place] # (Auto) 0.6 Eos # (Auto) 0.3 Baso # (Auto) 0.0 Absolute Nucleated RBC 0.00 Nucleated RBC % 0.0 Sodium 138 Potassium 3.7 Chloride 101 Carbon Dioxide 25 Anion Gap 12.0 BUN 12 Creatinine 0.7 Estimated GFR (MDRD) 90 Glucose 132 H Calcium 9.1 Total Bilirubin 0.3 AST 16 ALT 15 Alkaline Phosphatase 53 Troponin I High Sens 3.1 Total Protein 8.6 H Albumin 3.9 Globulin 4.7 H Albumin/Globulin Ratio 0.8 L Lipase 52 H PD MEDICAL DECISION MAKING - ED course Complexity details: reviewed old records, reviewed results, re-evaluated patient, considered differential, d/w patient ED course: 46-year-old female presents emergency department for evaluation of right ear muffled hearing congestion and dizziness. She has had congestion for a few weeks without response to cetirizine. She also had reported some chest pain. She does report being exceedingly anxious. Seen by my colleague about a month ago and started on Wellbutrin. She initially started taking that and felt better but then stopped taking it as she does not want to be addicted to the medication. On evaluation she has no focal or cerebellar deficits. She does have a small right ear effusion. But given lack of pain or fevers my suspicion for bacterial otitis media is rather low. Patient is advised to do Benadryl at nighttime as an anticholinergic as well as saline nasal rinses followed by Flonase and cetirizine daily. Screening EKG is unchanged. She does have Q waves in the inferior leads but troponin is negative. These Q waves are unchanged from previous. Patient has been advised by her primary to have follow-up echo which she is currently scheduled. We discussed that the constellation of her symptoms is likely exacerbated by anxiety. She responds to me that she will begin taking the Wellbutrin again. Otherwise emergent return precautions discussed Departure - Departure Disposition: 01 Home, Self Care Clinical Impression: Acute effusion of left ear, Anxiety Condition: Stable Record reviewed to determine appropriate education?: Yes Prescriptions: Cetirizine HCl [Zyrtec] 10 mg PO DAILY #30 tablet Comments: Risa you are seen today in the emergency department for muffled hearing congestion and dizziness. You do have a small effusion behind your right eardrum. This is most likely due to your congestion and eustachian tube dysfunction. I would like you to use saline nasal rinses in the shower each day. After you get out of the shower use Flonase nasal spray. This will help open your eustachian tube up. Taking a dose of Benadryl 25 mg at night before bed will also work to help dry up the secretions and your congestion causing this effusion. I have represcribed the cetirizine and sent it to the [facility] in [place]. You also have a lot of anxiety about your general health. You had reported some chest pain. Your screening labs today do not show any new or worrisome findings. I do recommend you continue to follow-up closely as recommended by your primary care provider for the outpatient echocardiogram. You did seem to feel improvement when taking the bupropion prescribed by Dr. Sandoval over a month ago. I do recommend you resume taking this. Anxiety can cause a lot of worrisome symptoms for many patients including vague numbness tingling panic and worry. Longer-term evaluation and management of this can be done with your primary doctor. You may benefit from meditation and relaxation exercises.
[2022-03-23 20:59] LABS: BASOPHILS % (AUTO) 0.2 %; EOSINOPHILS # (AUTO) 0.3 10^3/uL (0.0-0.7); EOSINOPHILS % (AUTO) 2.2 %; HCT - HEMATOCRIT 39.1 % (37.0-47.0); HGB - HEMOGLOBIN 12.5 g/dL (12.0-16.0); LYMPHOCYTES # (AUTO) 3.5 10^3/uL (1.5-3.5); LYMPHOCYTES % (AUTO) 28.3 %; MEAN CORPUSCULAR HEMOGLOBIN 27.8 pg (27.0-31.0); MEAN CORPUSCULAR VOLUME 87.1 fL (81.0-99.0); MEAN PLATELET VOLUME 11.2 fL (7.9-10.8); MONOCYTES # (AUTO) 0.6 10^3/uL (0.0-1.0); MONOCYTES % (AUTO) 4.5 %; NEUTROPHILS # (AUTO) 7.9 10^3/uL (1.5-6.6); NEUTROPHILS % (AUTO) 64.2 %; PLT - PLATELET COUNT 249 10^3/uL (130-450); RED BLOOD COUNT 4.49 10^6/uL (4.20-5.40); RED CELL DISTRIBUTION WIDTH 13.8 % (12.0-15.0); WHITE BLOOD COUNT 12.3 x10^3/uL (4.8-10.8)
--- OUTSIDE RECORDS SUMMARY | 2022-03-23 21:04 | EXTERNAL MEDICAL SUMMARY RPT | Continuity of Care Document ---
:1975 Author Organization [facility] Address [address] [place] [address] Phone Care Team Providers Name Role Phone Miscellaneous Unavailable Unavailable Bachle Unavailable Unavailable Allergies No information. Encounters No information. Medications date description facility [id number] Mupirocin 0.02 MG/MG Topical Ointment [facility] Problems Procedures date description facility [id number] [facility] [id number] [facility] [id number] [facility] Results No information. Vital Signs date [...]
[2022-03-23 21:24] LABS: ALBUMIN 3.9 g/dL (3.2-5.5); ALBUMIN/GLOBULIN RATIO 0.8 (1.0-2.2); BILIRUBIN,TOTAL 0.3 mg/dL (0.2-1.0); CALCIUM 9.1 mg/dL (8.5-10.3); CREATININE 0.7 mg/dL (0.4-1.0); POTASSIUM 3.7 mmol/L (3.5-5.0); TOTAL PROTEIN 8.6 g/dL (6.7-8.2)
== END 2022-03-23 22:04 | disposition home or self-care (01) ==
LOC: ED 20:28
DX: H65.192 Other acute nonsuppurative otitis media, left ear (principal); F41.9 Anxiety disorder, unspecified
CPT/HCPCS: 36415; 80053; 83690; 84484; 85025; 93005; 99283

== ENCOUNTER 2022-08-13 18:28 | Emergency (ER) | payer MEDICAID ==
[2022-08-13 20:06] LABS: BASOPHILS % (AUTO) 0.3 %; EOSINOPHILS # (AUTO) 0.3 10^3/uL (0.0-0.7); EOSINOPHILS % (AUTO) 2.2 %; HCT - HEMATOCRIT 37.2 % (37.0-47.0); HGB - HEMOGLOBIN 11.7 g/dL (12.0-16.0); LYMPHOCYTES # (AUTO) 2.4 10^3/uL (1.5-3.5); LYMPHOCYTES % (AUTO) 19.5 %; MEAN CORPUSCULAR HGB CONC 31.5 g/dL (32.0-36.0); MEAN CORPUSCULAR VOLUME 85.9 fL (81.0-99.0); MEAN PLATELET VOLUME 10.8 fL (7.9-10.8); MONOCYTES # (AUTO) 0.7 10^3/uL (0.0-1.0); MONOCYTES % (AUTO) 5.2 %; NEUTROPHILS % (AUTO) 72.5 %; PLT - PLATELET COUNT 229 10^3/uL (130-450); RED BLOOD COUNT 4.33 10^6/uL (4.20-5.40); RED CELL DISTRIBUTION WIDTH 13.9 % (12.0-15.0); WHITE BLOOD COUNT 12.4 x10^3/uL (4.8-10.8)
[2022-08-13 20:13] LABS: CALCIUM 9.1 mg/dL (8.5-10.3); CREATININE 0.7 mg/dL (0.4-1.0); POTASSIUM 3.4 mmol/L (3.5-5.0)
--- NOTE | 2022-08-13 20:20 | ED Physician Documentation ---
History of Present Illness - Stated complaint Stated Complaint: ARM PAIN - Chief complaint Chief Complaint: Ext Problem - Additonal information Additional information: 46-year-old female presents emergency department for evaluation of 2 weeks pain in her left deltoid region. She states that the pain began about 2 weeks after getting her flu shot in the arm. She denies any falls or trauma. She only has pain when she moves the arm and it does radiate into her neck and down her arm. She is obese but denies a history of hypertension or diabetes. She is here mostly because she is concerned that the arm pain could be a sign of myocardial infarction. However she does deny chest pain or shortness of air. No leg swelling. 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 : None HEENT: None Psych: Anxiety Musculoskeletal: None Derm: None - Past Surgical History Past Surgical History: No - Present Medications Home Medications: Ambulatory Orders Medication Instructions Recorded Confirmed buPROPion [Wellbutrin Sr] 100 mg PO BID #60 tablet 02/28/22 03/04/22 Cetirizine [ZyrTEC] 10 mg PO DAILY #15 tablet 03/04/22 Meclizine HCl [Motion Sickness] 25 mg PO Q8H PRN #20 tablet 03/04/22 Cetirizine HCl [Zyrtec] 10 mg PO DAILY #30 tablet 03/23/22 - Allergies Allergies/Adverse Reactions: Allergies Allergy/AdvReac Type Severity Reaction Status Date / Time amoxicillin Allergy Intermediate nausea and Verified 08/13/22 18:46 rash amoxicillin trihydrate * Allergy Intermediate nausea and Verified 08/13/22 18:46 [From Augmentin] rash cephalexin monohydrate * Allergy Intermediate rash and Verified 08/13/22 18:46 [From Keflex] nausea potassium clavulanate * Allergy Intermediate nausea and Verified 08/13/22 18:46 [From Augmentin] rash - Social History Does the pt smoke?: No Smoking Status: Never smoker Does the pt drink ETOH?: No Does the pt have substance abuse?: No - Immunizations Immunizations are current?: Yes - POLST Patient has POLST: No PD ED PE NORMAL - General General: Alert and oriented X 3, No acute distress, Well developed/nourished - HEENT HEENT: Atraumatic, Moist mucous membranes - Neck Neck: Supple, no meningeal sign, No adenopathy - Cardiac Cardiac: RRR, No murmur - Respiratory Respiratory: No respiratory distress, Clear bilaterally - Abdomen Abdomen: Normal bowel sounds, Soft - Derm Derm: Normal color, Warm and dry, No rash - Extremities Extremities: No deformity, No tenderness to palpate. No: Normal ROM s pain (Pain with movement of the left shoulder at the deltoid. Negative Jurgenson's. 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 No: Prolonged QT QRS: Low voltage Ischemia: Q waves (Inferior leads) Compare to prior EKG: Old EKG unavailable Computer interpretation: Agree with computer - Labs Labs: Laboratory Tests 08/13/22 08/13/22 08/13/22 19:51 19:54 19:54 WBC 12.4 H RBC 4.33 Hgb 11.7 L Hct 37.2 MCV 85.9 MCH 27.0 MCHC 31.5 L RDW 13.9 Plt Count 229 MPV 10.8 Neut # (Auto) 9.0 H Lymph # (Auto) 2.4 [place] # (Auto) 0.7 Eos # (Auto) 0.3 Baso # (Auto) 0.0 Absolute Nucleated RBC 0.00 Nucleated RBC % 0.0 Sodium 138 Potassium 3.4 L Chloride 105 Carbon Dioxide 26 Anion Gap 7.0 BUN 12 Creatinine 0.7 Estimated GFR (MDRD) 90 Glucose 111 H Calcium 9.1 Troponin I High Sens 3.3 - Rads (name of study) cxr Radiology: Final report received (No acute pulmonary process) PD MEDICAL DECISION MAKING - ED course Complexity details: reviewed results, re-evaluated patient, considered differential, d/w patient ED course: 46-year-old female presents emergency department for evaluation of 2 weeks left shoulder pain at the deltoid region. Pain only present when she moves her arm. However she is obese and has a family history of cardiac disorders therefore she comes to the ER to make sure her heart is okay. The exam of the arm is rather benign and it does have reproducible pain with movement. We did do an a an EKG for the patient who was free of chest pain. We do see sinus rhythm that is nonischemic today but there are some Q waves in the inferior leads. CBC electrolytes and troponin were unremarkable. I discussed the abnormal EKG finding with the patient at the bedside. She reports that her primary care provider had referred her for an echocardiogram quite some time ago though she got busy and never followed up with that. I discussed that she would benefit from continuation with a referral for echocardiogram and should also be referred for evaluation of a stress Test given the Q waves in the inferior leads. No findings today to suggest active myocardial infarction or NSTEMI. Patient is discharged home in stable condition. Departure - Departure Disposition: 01 Home, Self Care Clinical Impression: Pain of left deltoid, Abnormal EKG Condition: Stable Record reviewed to determine appropriate education?: Yes Follow-Up: Taylor Michaels PA [Provider Admit Priv/Credential] - Comments: Risa came to the emergency department today because her about 2 weeks you have been having pain in your left deltoid area on your shoulder. I suspect you have mild muscle strain or shoulder strain but I do not think it is more than that. However you were concerned because you have a strong family history of coronary artery disease and were concerned that the pain in the arm could be related to that. Your EKG today does not show signs of an active heart attack however it was abnormal and that you have" Q waves in the inferior leads" this can be a sign of heart disease and it is important that you follow-up with your primary care provider. In addition to obtaining the echo that she has recommended you would benefit from referral for cardiac stress test. If at any point you find that your symptoms worsen, you develop chest pain or shortness of air you should return immediately to the ER I encouraged moderate weight loss a heart healthy diet and regular exercise
--- NOTE | 2022-08-13 20:40 | XRAY Report ---
PROCEDURE: Chest 1 View X-Ray INDICATIONS: chest pain TECHNIQUE: One view of the chest was acquired. COMPARISON: Chest x-ray 03/04/2022 FINDINGS: Surgical changes and devices: None. Lungs and pleura: No pleural effusions or pneumothorax. Lungs are clear. Mediastinum: Mediastinal contours appear normal. Heart size is mildly prominent. Bones and chest wall: No suspicious bony lesions. Overlying soft tissues appear unremarkable. IMPRESSION: No acute pulmonary process. Reviewed by: Janell Persaud MD on 08/13/2022 8:39 PM PDT Approved by: Janell Persaud MD on 08/13/2022 8:39 PM PDT Station ID: [id number]
[2022-08-13 20:54] VITALS: BP 138/80
== END 2022-08-13 20:56 | disposition home or self-care (01) ==
LOC: ED 18:28
DX: M79.18 Myalgia, other site (principal); R94.31 Abnormal electrocardiogram [ECG] [EKG]; Z82.49 Family history of ischemic heart disease and other diseases of the circulatory system
CPT/HCPCS: 36415; 80048; 84484; 85025; 93005; 99284

== ENCOUNTER 2022-08-18 10:17 | Outpatient (CLI) | payer MEDICAID ==
[2022-08-18 12:54] LABS: ALBUMIN 4.4 g/dL (3.2-5.5); ALBUMIN/GLOBULIN RATIO 0.9 (1.0-2.2); ALKALINE PHOSPHATASE 55 IU/L (42-121); ALT ALANINE AMINOTRANSFERASE 18 IU/L (10-60); AST ASPARTATE AMINOTRANSFERASE 19 IU/L (10-42); BILIRUBIN,TOTAL 0.8 mg/dL (0.2-1.0); BUN - BLOOD UREA NITROGEN 14 mg/dL (6-20); CALCIUM 9.6 mg/dL (8.5-10.3); CARBON DIOXIDE - CO2 24 mmol/L (21-32); CHLORIDE 103 mmol/L (101-111); CHOL/HDL RATIO 4.3 (<4.4); CHOLESTEROL 210 mg/dL; CREATININE 0.7 mg/dL (0.4-1.0); GFR - MDRD 90 (>89); GLUCOSE 119 mg/dL (70-100); HDL CHOLESTEROL 49 mg/dL; LDL CHOLESTEROL,CALCULATED 143 mg/dL; LDL/HDL RATIO 2.9 (<4.4); POTASSIUM 3.8 mmol/L (3.5-5.0); SODIUM 139 mmol/L (135-145); TOTAL PROTEIN 9.1 g/dL (6.7-8.2); TRIGLYCERIDES 88 mg/dL; VLDL CHOLESTEROL 18 mg/dL
[2022-08-18 13:16] LABS: THYROID STIMULATING HORMONE 1.43 uIU/mL (0.34-5.60)
[2022-08-18 13:22] LABS: BASOPHILS % (AUTO) 0.4 %; EOSINOPHILS # (AUTO) 0.1 10^3/uL (0.0-0.7); EOSINOPHILS % (AUTO) 0.7 %; HCT - HEMATOCRIT 40.6 % (37.0-47.0); HGB - HEMOGLOBIN 12.8 g/dL (12.0-16.0); LYMPHOCYTES # (AUTO) 2.7 10^3/uL (1.5-3.5); LYMPHOCYTES % (AUTO) 25.2 %; MEAN CORPUSCULAR HGB CONC 31.5 g/dL (32.0-36.0); MEAN CORPUSCULAR VOLUME 85.7 fL (81.0-99.0); MEAN PLATELET VOLUME 11.4 fL (7.9-10.8); MONOCYTES # (AUTO) 0.6 10^3/uL (0.0-1.0); MONOCYTES % (AUTO) 5.3 %; NEUTROPHILS # (AUTO) 7.2 10^3/uL (1.5-6.6); NEUTROPHILS % (AUTO) 67.8 %; PLT - PLATELET COUNT 257 10^3/uL (130-450); RED BLOOD COUNT 4.74 10^6/uL (4.20-5.40); RED CELL DISTRIBUTION WIDTH 14.2 % (12.0-15.0); WHITE BLOOD COUNT 10.7 x10^3/uL (4.8-10.8)
[2022-08-18 13:31] LABS: ESTIMATED AVERAGE GLUCOSE 120 mg/dL (70-100); HEMOGLOBIN A1c% 5.8 % (4.27-6.07)
[2022-08-18 13:44] LABS: FOLLICLE STIMULATING HORMONE 14.2 mIU/mL
== END 2022-08-18 10:18 | disposition home or self-care (01) ==
LOC: LAB.N 10:17
PROVIDERS: ATTEND Physician Assistant
DX: R73.01 Impaired fasting glucose (principal); E78.5 Hyperlipidemia, unspecified; N95.1 Menopausal and female climacteric states; R23.2 Flushing; R73.03 Prediabetes
CPT/HCPCS: 36415; 80053; 80061; 83001; 83036; 83721; 84443; 85025

== ENCOUNTER 2022-08-27 07:40 | Outpatient (CLI) | payer MEDICAID | END 2022-08-27 07:41 | disposition home or self-care (01) | LOC: DI 07:40 | PROVIDERS: ATTEND Physician Assistant | DX: R01.1 Cardiac murmur, unspecified (principal) | CPT/HCPCS: 93306 ==

== ENCOUNTER 2023-04-23 09:30 | Outpatient (CLI) | payer MEDICAID ==
[2023-04-23 12:04] LABS: ESTIMATED AVERAGE GLUCOSE 137 mg/dL (70-100); HEMOGLOBIN A1c% 6.4 % (4.27-6.07)
[2023-04-23 12:25] LABS: BUN - BLOOD UREA NITROGEN 11 mg/dL (6-20); CALCIUM 8.6 mg/dL (8.5-10.3); CARBON DIOXIDE - CO2 28 mmol/L (21-32); CHLORIDE 106 mmol/L (101-111); CHOL/HDL RATIO 3.6 (<4.4); CHOLESTEROL 174 mg/dL; CREATININE 0.7 mg/dL (0.4-1.0); GFR - MDRD 89 (>89); GLUCOSE 114 mg/dL (70-100); HDL CHOLESTEROL 48 mg/dL; LDL CHOLESTEROL,CALCULATED 113 mg/dL; LDL/HDL RATIO 2.4 (<4.4); POTASSIUM 3.7 mmol/L (3.5-5.0); SODIUM 140 mmol/L (135-145); TRIGLYCERIDES 67 mg/dL; VLDL CHOLESTEROL 13 mg/dL
== END 2023-04-23 09:31 | disposition home or self-care (01) ==
LOC: LAB.N 09:30
PROVIDERS: ATTEND Physician Assistant
DX: E78.5 Hyperlipidemia, unspecified (principal); R73.03 Prediabetes
CPT/HCPCS: 36415; 80048; 80061; 83036; 83721

== ENCOUNTER 2023-11-19 07:52 | Outpatient (CLI) | payer MEDICAID ==
[2023-11-19 12:08] LABS: ALBUMIN 3.7 g/dL (3.2-5.5); ALKALINE PHOSPHATASE 46 IU/L (42-121); ALT ALANINE AMINOTRANSFERASE 15 IU/L (10-60); AST ASPARTATE AMINOTRANSFERASE 14 IU/L (10-42); BILIRUBIN,TOTAL 0.4 mg/dL (0.2-1.0); BUN - BLOOD UREA NITROGEN 13 mg/dL (6-20); CALCIUM 8.7 mg/dL (8.5-10.3); CARBON DIOXIDE - CO2 28 mmol/L (21-32); CHLORIDE 105 mmol/L (101-111); CHOL/HDL RATIO 3.4 (<4.4); CHOLESTEROL 165 mg/dL; CREATININE 0.6 mg/dL (0.6-1.3); GFR - MDRD 107 (>89); GLUCOSE 124 mg/dL (74-104); HDL CHOLESTEROL 48 mg/dL; LDL CHOLESTEROL,CALCULATED 102 mg/dL; LDL/HDL RATIO 2.1 (<4.4); SODIUM 137 mmol/L (135-145); TOTAL PROTEIN 7.5 g/dL (6.4-8.9); TRIGLYCERIDES 77 mg/dL (48-352); VLDL CHOLESTEROL 15 mg/dL
[2023-11-19 12:16] LABS: ESTIMATED AVERAGE GLUCOSE 128 mg/dL (70-100); HEMOGLOBIN A1c% 6.1 % (4.27-6.07)
== END 2023-11-19 07:53 | disposition home or self-care (01) ==
LOC: LAB.N 07:52
PROVIDERS: ATTEND Physician Assistant
DX: E78.5 Hyperlipidemia, unspecified (principal); R73.01 Impaired fasting glucose
CPT/HCPCS: 36415; 80053; 80061; 83036; 83721